=== PATIENT | female | born 1960 ===

== ENCOUNTER 2016-06-30 16:15 | Emergency (ER) | payer OTHER ==
[2016-06-30 16:19] VITALS: BMI 30.9
[2016-06-30 16:23] VITALS: TEMP 98.1
[2016-06-30] MEDS ORDERED: Sodium Chloride 0.9% 1,000 ML IV STA (16:46)
--- NOTE | 2016-06-30 16:51 | ED PDOC ---
Arrival/HPI - General Chief Complaint: Dizziness/Lightheaded Time Seen by Provider: 06/30/16 16:24 Historian: Patient - History of Present Illness Narrative History of Present Illness (Text): 06/30/16 16:48 56 y/o female, pmh including HIV, nkda, c/o dizziness/nausea after taking tylenol#4 for the first time. Pt. stated that she has mild rt. posterior neck/ headache on the back of the head 11am, took tylenol#4 from the daughter to relief the headache which the headache resolved but she took it on the empty stomach, feeling nauseous and wants to vomiting, no chest pain or shortness of breath, no palpitation, no other medical or psychological complaints, no numbness or tingling, no dizziness, no night sweat, no change in vision, no weakness, no other medical or psychological complaints. Past Medical History - Provider Review Nursing Documentation Reviewed: Yes - Infectious Disease Hx of Infectious Diseases: None - Tetanus Immunization Tetanus Immunization: Unknown - Cardiac Hx Cardiac Disorders: No - Pulmonary Hx Respiratory Disorders: No - Neurological Hx Neurological Disorder: No - HEENT Hx HEENT Disorder: No - Renal Hx Renal Disorder: Yes Hx Kidney Stones: Yes - Endocrine/Metabolic Hx Endocrine Disorders: No - Hematological/Oncological Hx AIDS: Yes - Integumentary Hx Dermatological Disorder: No - Musculoskeletal/Rheumatological Hx Musculoskeletal Disorders: No Hx Falls: No - Gastrointestinal Hx Gastrointestinal Disorders: Yes Hx Gastroesophageal Reflux: Yes - Genitourinary/Gynecological Hx Genitourinary Disorders: No - Psychiatric Hx Psychophysiologic Disorder: Yes Hx Anxiety: Yes Hx Depression: Yes Hx Substance Use: No - Surgical History Hx Cholecystectomy: Yes - Anesthesia Hx Anesthesia: No Hx Anesthesia Reactions: No Hx Malignant Hyperthermia: No - Suicidal Assessment Feels Threatened In Home Enviroment: No Family/Social History - Physician Review Nursing Documentation Reviewed: Yes Family/Social History: Unknown Family HX Smoking Status: Never Smoked Hx Alcohol Use: No Hx Substance Use: No Hx Substance Use Treatment: No Allergies/Home Meds Allergies/Adverse Reactions: Allergies No Known Allergies Allergy (Verified 06/30/16 16:18) Home Medications: Home Meds Medication Instructions Recorded Confirmed Emtricita/rilpivir/tenofovir 1 tab PO DAILY 03/31/14 03/07/15 [Complera 200 mg-25 mg-300 mg] Review of Systems - Review of Systems Constitutional: absent: Fatigue, Fevers Eyes: absent: Vision Changes, Photophobia, Eye Pain ENT: absent: Hearing Changes, Tinnitus, TMJ Pain, Voice Changes, Sore Throat, Rhinorrhea, Epistaxis, Sinus Congestion Respiratory: absent: SOB, Cough, Sputum, Wheezing Cardiovascular: absent: Chest Pain, Palpitations, Edema, Calf Pain, TSAI, Orthopnea, Syncope Gastrointestinal: Nausea, Vomiting. absent: Abdominal Pain Genitourinary Female: absent: Dysuria, Frequency Musculoskeletal: absent: Arthralgias, Back Pain, Neck Pain, Joint Swelling, Myalgias Skin: absent: Rash, Pruritis, Skin Lesions, Laceration, Abscess, Ulcer, Cellulitis Neurological: Headache. absent: Dizziness, Focal Weakness, Gait Changes, Speech Changes, Facial Droop, Disequilibrium, Seizure Endocrine: absent: Diaphoresis, Polyuria, Polydipsia Hemo/Lymphatic: absent: Adenopathy, Easy Bleeding, Easy Bruising Psychiatric: absent: Anxiety, Depression, Suicidal Ideation Physical Exam Vital Signs Reviewed: Yes Vital Signs Temp Pulse Resp BP Pulse Ox 06/30/16 18:15 73 17 128/77 100 06/30/16 16:20 98.1 F 72 18 131/72 97 Temperature: Afebrile Blood Pressure: Normal Pulse: Regular Respiratory Rate: Normal Appearance: Positive for: Well-Appearing, Non-Toxic, Comfortable Pain Distress: None Mental Status: Positive for: Alert and Oriented X 3 - Systems Exam Head: Present: Atraumatic, Normocephalic Pupils: Present: PERRL Extroacular Muscles: Present: EOMI Conjunctiva: Present: Normal Ears: Present: NORMAL TM, Normal Canal. No: Erythema Mouth: Present: Moist Mucous Membranes, Normal Lips, Normal Tounge, Normal Teeth. No: Drooling, Trismus Pharnyx: No: ERYTHEMA, EXUDATE, Uvular Deviation, Soft Palate/Uvular Edema Nose (External): Present: Atraumatic. No: Abrasion, Contusion, Laceration, Lesions Nose (Internal): Present: Normal Inspection, No Active Bleeding. No: Rhinorrhea , Septal Hematoma, Epistaxis Neck: Present: Normal Range of Motion Respiratory/Chest: Present: Clear to Auscultation, Good Air Exchange. No: Respiratory Distress, Accessory Muscle Use Cardiovascular: Present: Regular Rate and Rhythm, Normal S1, S2. No: Murmurs Abdomen: Present: Normal Bowel Sounds. No: Tenderness, Distention, Peritoneal Signs, Rebound, Guarding Back: Present: Normal Inspection. No: CVA Tenderness, Midline Tenderness, Paraspinal Tenderness Upper Extremity: Present: Normal Inspection. No: Cyanosis, Edema Lower Extremity: Present: Normal Inspection. No: Edema Neurological: Present: GCS=15, CN II-XII Intact, Speech Normal, Motor Func Grossly Intact, Gait Normal, Memory Normal, Other (normal finger to nose test, normal heel to nicholson test, no focal neurological deficits. ) Skin: Present: Warm, Dry, Normal Color. No: Rashes Psychiatric: Present: Alert, Oriented x 3, Normal Insight, Normal Concentration Medical Decision Making ED Course and Treatment: 06/30/16 16:54 -labs -CT Head -IVF/reglan -Observe and reassess 06/30/16 18:01 -NSR @ 72BPM, no acute ST or T wave changes compared with previous ekg. -CT Head show no acute findings. -Labs are non-significant. -Pt. has no urinary symptoms. -Pt. feels completely relief after the IVF and reglan, walking with normal gait and posture, no focal neurological deficits, advised no narcotics anymore. -Discharge home with education on stay hydrated, bed rest, take tylenol or motrin as needed, NO NARCOTICS, follow up with your own pmd and neurologist within 2 days, return to the ER for any new or worsening signs or symptoms. - Lab Interpretations Lab Results: 06/30/16 16:50 06/30/16 17:45 Lab Results 06/30/16 18:24: Urine Color Yellow, Urine Appearance Clear, Urine pH 6.0, Ur Specific [place] <= 1.005, Urine Protein Negative, Urine Glucose (UA) Negative, Urine Ketones Negative, Urine Blood Trace-intact H, Urine Nitrate Negative, Urine Bilirubin Negative, Urine Urobilinogen 0.2, Ur Leukocyte Esterase Small H , Urine RBC 0 - 2, Urine WBC 2 - 5, Ur Epithelial Cells 1 - 3 06/30/16 17:45: Sodium 138, Potassium 3.8, Chloride 102, Carbon Dioxide 29, Anion Gap 11, BUN 10, Creatinine 0.8, Est GFR ( Amer) > 60, Est GFR (Non- Af Amer) > 60, Random Glucose 87, Calcium 8.4, Total Bilirubin 0.9, AST 52 H, ALT 37, Alkaline Phosphatase 72, Total Protein 7.1, Albumin 3.6, Globulin 3.5, Albumin/Globulin Ratio 1.0 L 06/30/16 16:50: WBC 6.5 D, RBC 4.51, Hgb 14.1, Hct 40.9, MCV 90.7, MCH 31.3, MCHC 34.5, RDW 12.9, Plt Count 244, MPV 9.6, Gran % 64.5, Lymph % (Auto) 27.9, [place] % (Auto) 6.3 H, Eos % (Auto) 1.1 L, Baso % (Auto) 0.2, Gran # 4.21, Lymph # 1.8, [place] # 0.4, Eos # 0.1, Baso # 0.01 I have reviewed the lab results: Yes Interpretation: No clinic. lab abnormalty - RAD Interpretation Radiology Orders: 06/30/16 16:46 HEAD W/O CONTRAST [CT] Stat PROCEDURE: CT HEAD WITHOUT CONTRAST. HISTORY: rt. posterior headache, no focal deficits COMPARISON: Noncontrast head CT performed 11/05/13 TECHNIQUE: Axial computed tomography images were obtained through the head/brain without intravenous contrast. Radiation dose: Total exam DLP = 774.23 mGy-cm. FINDINGS: HEMORRHAGE: No intracranial hemorrhage. BRAIN: No mass effect or edema. The zavala-white matter differentiation appears intact. Please note that MRI with diffusion imaging is more sensitive in the detection of acute ischemic event. VENTRICLES: No hydrocephalus. CALVARIUM: Unremarkable. PARANASAL SINUSES: Unremarkable as visualized. No significant inflammatory changes. MASTOID AIR CELLS: Unremarkable as visualized. No inflammatory changes. OTHER FINDINGS: None. IMPRESSION: No acute intracranial pathology identified. Courtroom Clerk: Radiologist - EKG Interpretation EKG Interpretation (Text): 06/30/16 18:00 NSR @ 72BPM, no acute ST or T wave changes compared with previous ekg. Interpreted by ED Physician: Yes Type: 12 lead EKG Comparison: Com.w/previous EKG - Medication Orders Current Medication Orders: Discontinued Medications Sodium Chloride (Sodium Chloride 0.9%) 1,000 mls @ 999 mls/hr IV .Q1H1M STA Stop: 06/30/16 17:46 Last Admin: 03/22/17 17:05 Dose: 999 MLS/HR eMAR Start Stop Document 06/30/16 17:05 ALA (Rec: 06/30/16 17:06 ALA [id number]) Intravenous Solution Start Date 06/30/16 Start Time 17:06 End Date 06/30/16 End time 18:06 Total Infusion Time 60 Metoclopramide HCl (Reglan) 10 mg IVP STAT STA Stop: 06/30/16 16:47 Last Admin: 06/30/16 17:10 Dose: 10 MG IVP Administration Document 06/30/16 17:10 ALA (Rec: 06/30/16 17:10 ALA [id number]) Charges for Administration # of IVP Administrations 1 NIHSS Stroke Scale 3 - Date/Time Evaluation Performed Date Performed: 06/30/16 Time Performed: 16:55 When Was NIHSS Performed: Baseline - How Severe is the Stroke Level of Consciousness: 0=Alert LOC to Questions: 0=Both comments correct LOC to commands: 0=Obeys both correctly Best Gaze: 0=Normal Visual: 0=No visual loss Facial: 0=Normal Motor Arm - Left: 0=No drift Motor Arm - Right: 0=No drift Motor Leg - Left: 0=No drift Motor Leg - Right: 0=No drift Limb Ataxia: 0=Absent Sensory: 0=Normal Best Language: 0=No aphasia Dysarthia: 0=Normal articulation Extinction & Inattention (Neglect): 0=Normal, no object Score: 0 - PA / HOSPITAL UNIT COORDINATOR / Resident Statement MD/DO has reviewed & agrees with the documentation as recorded. Disposition/Present on Arrival - Present on Arrival Any Indicators Present on Arrival: No History of DVT/PE: No History of Uncontrolled Diabetes: No Urinary Catheter: No History of Decub. Ulcer: No History Surgical Site Infection Following: None - Disposition Have Diagnosis and Disposition been Completed?: Yes Diagnosis: Medication side effect, Headache Disposition: HOME/ ROUTINE Disposition Time: 18:28 Patient Plan: Discharge Condition: IMPROVED Additional Instructions: Discharge home with education on stay hydrated, bed rest, take tylenol or motrin as needed, NO NARCOTICS, follow up with your own pmd and neurologist within 2 days, return to the ER for any new or worsening signs or symptoms. Referrals: Hayder Silva MD [Primary Care Provider] - Follow up with primary Theodore Daniels MD [Staff Provider] - Follow up with primary Forms: WORK NOTE
[2016-06-30 17:02] LABS: ADD MANUAL DIFF? NO
[2016-06-30 17:13] LABS: BASO # 0.01 K/mm3 (0.0-2.0); BASO % 0.2 % (0.0-3.0); EOS # 0.1 (0.0-0.7); EOS % 1.1 % (1.5-5.0); GRAN # 4.21 (1.4-6.5); GRAN % 64.5 % (50.0-68.0); HEMATOCRIT 40.9 % (36.0-48.0); LYMPH # 1.8 (1.2-3.4); LYMPH % 27.9 % (22.0-35.0); MEAN CELL VOLUME 90.7 fL (80.0-105.0); MEAN CORPUSCULAR HEMOGLOBIN 31.3 pg (25.0-35.0); MEAN CORPUSCULAR HGB CONC 34.5 g/dl (31.0-37.0); MEAN PLATELET VOLUME 9.6 fl (7.0-11.0); MONO # 0.4 (0.1-0.6); MONO % 6.3 % (1.0-6.0); PLATELET COUNT 244 10^3/uL (120.0-450.0); RED CELL DISTRIBUTION WIDTH 12.9 % (11.5-14.5); WHITE BLOOD COUNT 6.5 10^3/ul (4.5-11.0)
[2016-06-30 18:00] LABS: ALKALINE PHOSPHATASE 72 U/L (38-133); ALT/SGPT 37 U/L (7-56); AST/SGOT 52 U/L (15-39); BILIRUBIN,TOTAL 0.9 mg/dL (0.2-1.3); BLOOD UREA NITROGEN 10 mg/dL (7-21); CALCIUM 8.4 mg/dL (8.4-10.5); CARBON DIOXIDE 29 mmol/L (21-33); CHLORIDE 102 mmol/L (98-107); GFR AFRICAN-AMERICAN > 60; GLUCOSE,RANDOM 87 mg/dL (70-110); POTASSIUM 3.8 mmol/L (3.6-5.0); SODIUM 138 mmol/L (132-148); TOTAL PROTEIN 7.1 g/dL (5.8-8.3)
--- NOTE | 2016-06-30 18:15 | CT ---
PROCEDURE: CT HEAD WITHOUT CONTRAST. HISTORY: rt. posterior headache, no focal deficits COMPARISON: Noncontrast head CT performed 11/05/13 TECHNIQUE: Axial computed tomography images were obtained through the head/brain without intravenous contrast. Radiation dose: Total exam DLP = 774.23 mGy-cm. FINDINGS: HEMORRHAGE: No intracranial hemorrhage. BRAIN: No mass effect or edema. The zavala-white matter differentiation appears intact. Please note that MRI with diffusion imaging is more sensitive in the detection of acute ischemic event. VENTRICLES: No hydrocephalus. CALVARIUM: Unremarkable. PARANASAL SINUSES: Unremarkable as visualized. No significant inflammatory changes. MASTOID AIR CELLS: Unremarkable as visualized. No inflammatory changes. OTHER FINDINGS: None. IMPRESSION: No acute intracranial pathology identified.
[2016-06-30 18:33] LABS: URINE APPEARANCE CLEAR (CLEAR); URINE BILIRUBIN NEGATIVE (NEGATIVE); URINE BLOOD TRACE-INTACT (NEGATIVE); URINE COLOR YELLOW (YELLOW); URINE GLUCOSE (UA) NEGATIVE (NEGATIVE); URINE KETONE NEGATIVE (NEGATIVE); URINE LEUKOCYTE ESTERASE SMALL Leu/uL (NEGATIVE); URINE PROTEIN NEGATIVE mg/dL (<30 mg/dL); URINE UROBILINOGEN 0.2 E.U./dL (<1 E.U./dL)
[2016-06-30 18:35] VITALS: BP 128/77; PULSE 73; RESP 17; O2SAT 100
[2016-06-30 18:37] LABS: URINE RBC 0 - 2 /hpf (0-2)
--- NOTE | 2016-06-30 19:48 | CARD ---
APPROVED REPORT EKG Measurement Heart [id number] SD 152P72 [id number] <Conclusion> Normal sinus rhythm Low voltage QRS Prolonged QT Abnormal ECG
== END 2016-06-30 18:38 | disposition home or self-care (01) ==
LOC: ED 16:15
DX: R11.0 Nausea (principal); T39.1X5A Adverse effect of 4-Aminophenol derivatives, initial encounter; R51 Headache; Z21 Asymptomatic human immunodeficiency virus [HIV] infection status
CPT/HCPCS: 70450; 80053; 81001; 85025; 93005; 96361; 96374; 99285; J2765; J7040

== ENCOUNTER 2016-09-04 18:38 | Emergency (ER) | payer OTHER ==
[2016-09-04 18:45] VITALS: RESP 18; TEMP 98.2; BMI 25.7
--- NOTE | 2016-09-04 19:11 | ED PDOC ---
Arrival/HPI - General Chief Complaint: Chest Pain Time Seen by Provider: 09/04/16 18:57 - History of Present Illness Narrative History of Present Illness (Text): 09/04/16 19:08 Pateint is c/o left sided chest pain for 3 hours, pain is reproducible with palpation of the chest, no family history or risk factors, no sob or fever or chills or cough Time/Duration: 1-3 hours Quality: Tightness Modifying Factors (Text): 09/04/16 19:10 palpation of chest Past Medical History - Provider Review Nursing Documentation Reviewed: Yes - Infectious Disease Hx of Infectious Diseases: None - Tetanus Immunization Tetanus Immunization: Unknown - Cardiac Hx Cardiac Disorders: No - Pulmonary Hx Respiratory Disorders: No - Neurological Hx Neurological Disorder: No - HEENT Hx HEENT Disorder: No - Renal Hx Renal Disorder: Yes Hx Kidney Stones: Yes - Endocrine/Metabolic Hx Endocrine Disorders: No - Hematological/Oncological Hx AIDS: Yes - Integumentary Hx Dermatological Disorder: No - Musculoskeletal/Rheumatological Hx Musculoskeletal Disorders: No Hx Falls: No - Gastrointestinal Hx Gastrointestinal Disorders: Yes Hx Gastroesophageal Reflux: Yes - Genitourinary/Gynecological Hx Genitourinary Disorders: No - Psychiatric Hx Psychophysiologic Disorder: Yes Hx Anxiety: Yes Hx Depression: Yes Hx Substance Use: No - Surgical History Hx Cholecystectomy: Yes - Anesthesia Hx Anesthesia: No Hx Anesthesia Reactions: No Hx Malignant Hyperthermia: No - Suicidal Assessment Feels Threatened In Home Enviroment: No Family/Social History - Physician Review Nursing Documentation Reviewed: Yes Family/Social History: No Known Family HX Smoking Status: Never Smoked Hx Alcohol Use: No Hx Substance Use: No Hx Substance Use Treatment: No Allergies/Home Meds Allergies/Adverse Reactions: Allergies No Known Allergies Allergy (Verified 09/04/16 18:54) Home Medications: Home Meds Medication Instructions Recorded Confirmed Emtricita/rilpivir/tenofovir 1 tab PO DAILY 03/31/14 03/07/15 [Complera 200 mg-25 mg-300 mg] Review of Systems - Physician Review All systems were reviewed & negative as marked: Yes - Review of Systems Cardiovascular: Chest Pain Physical Exam Vital Signs Reviewed: Yes Vital Signs Temp Pulse Resp BP Pulse Ox 09/04/16 18:44 98.2 F 69 18 135/75 99 Temperature: Afebrile Blood Pressure: Normal Pulse: Regular Respiratory Rate: Normal Appearance: Positive for: Well-Appearing, Non-Toxic, Comfortable Pain Distress: None Mental Status: Positive for: Alert and Oriented X 3 - Systems Exam Head: Present: Atraumatic, Normocephalic Pupils: Present: PERRL Extroacular Muscles: Present: EOMI Conjunctiva: Present: Normal Mouth: Present: Moist Mucous Membranes Neck: Present: Normal Range of Motion Respiratory/Chest: Present: Clear to Auscultation, Good Air Exchange, Tender to Palpation. No: Respiratory Distress, Accessory Muscle Use Cardiovascular: Present: Regular Rate and Rhythm, Normal S1, S2. No: Murmurs Abdomen: Present: Normal Bowel Sounds. No: Tenderness, Distention, Peritoneal Signs Back: Present: Normal Inspection Upper Extremity: Present: Normal Inspection. No: Cyanosis, Edema Lower Extremity: Present: Normal Inspection. No: Edema Neurological: Present: GCS=15, CN II-XII Intact, Speech Normal Skin: Present: Warm, Dry, Normal Color. No: Rashes Psychiatric: Present: Alert, Oriented x 3, Normal Insight, Normal Concentration Medical Decision Making ED Course and Treatment: 09/04/16 20:29 clincally patients pain is ms in nature , no risk factors will dc to follow up with pmd - Lab Interpretations Lab Results: 09/04/16 18:42 09/04/16 18:42 Lab Results 09/04/16 18:42: Sodium 140, Potassium 4.0, Chloride 103, Carbon Dioxide 29, Anion Gap 12, BUN 16, Creatinine 1.1, Est GFR ( Amer) > 60, Est GFR (Non- Af Amer) 52, Random Glucose 91, Calcium 9.0, Magnesium 2.1, Total Bilirubin 0.7 , AST 49 H, ALT 40, Alkaline Phosphatase 69, Lactate Dehydrogenase 586, Total Creatine Kinase 423 H, CK-MB (CK-2) Pending, CK-MB (CK-2) % Pending, Troponin I < 0.01, Total Protein 7.7, Albumin 4.2, Globulin 3.6, Albumin/Globulin Ratio 1.2 09/04/16 18:42: WBC 6.4, RBC 4.63, Hgb 14.7, Hct 41.6, MCV 89.8, MCH 31.7, MCHC 35.3, RDW 12.8, Plt Count 287, MPV 9.9, Gran % 60.1, Lymph % (Auto) 30.0, [place] % (Auto) 6.8 H, Eos % (Auto) 2.8, Baso % (Auto) 0.3, Gran # 3.86, Lymph # 1.9, [place] # 0.4, Eos # 0.2, Baso # 0.02 - RAD Interpretation Radiology Orders: 09/04/16 19:13 CHEST PORTABLE [RAD] Stat - EKG Interpretation EKG Interpretation (Text): 09/04/16 19:11 normal sinus rhythm rate 69 no acute changes MONCHO Risk Score for UA/NSTEMI - MONCHO Risk Score Age > 64: NO 3 or more CAD Risk Factors: NO Known CAD (Stenosis greater than 50%): NO Severe Angina: NO EKG ST changes greater than 0.5mm: NO Positive Cardiac Marker: NO MONCHO Score: 0 % risk at 14 days of: all cause mortality, new or recurrent [place], or severe recurrent ischemia requiring urgen revascularization: 5% Disposition/Present on Arrival - Present on Arrival Any Indicators Present on Arrival: No History of DVT/PE: No History of Uncontrolled Diabetes: No Urinary Catheter: No History of Decub. Ulcer: No History Surgical Site Infection Following: None - Disposition Have Diagnosis and Disposition been Completed?: Yes Diagnosis: Chest pain Disposition: HOME/ ROUTINE Disposition Time: 20:30 Condition: GOOD Discharge Instructions (ExitCare): Chest Pain (ED) Referrals: Hayder Silva MD [Primary Care Provider] - Follow up with primary
[2016-09-04 19:32] LABS: ADD MANUAL DIFF? NO
[2016-09-04 19:38] LABS: BASO # 0.02 K/mm3 (0.0-2.0); BASO % 0.3 % (0.0-3.0); EOS # 0.2 (0.0-0.7); EOS % 2.8 % (1.5-5.0); GRAN # 3.86 (1.4-6.5); GRAN % 60.1 % (50.0-68.0); HEMATOCRIT 41.6 % (36.0-48.0); LYMPH # 1.9 (1.2-3.4); MEAN CELL VOLUME 89.8 fL (80.0-105.0); MEAN CORPUSCULAR HEMOGLOBIN 31.7 pg (25.0-35.0); MEAN CORPUSCULAR HGB CONC 35.3 g/dl (31.0-37.0); MEAN PLATELET VOLUME 9.9 fl (7.0-11.0); MONO # 0.4 (0.1-0.6); MONO % 6.8 % (1.0-6.0); PLATELET COUNT 287 10^3/uL (120.0-450.0); RED CELL DISTRIBUTION WIDTH 12.8 % (11.5-14.5); WHITE BLOOD COUNT 6.4 10^3/ul (4.5-11.0)
[2016-09-04 19:49] LABS: ALB/GLOB RATIO 1.2 (1.1-1.8); ALKALINE PHOSPHATASE 69 U/L (38-133); ALT/SGPT 40 U/L (7-56); AST/SGOT 49 U/L (15-39); BILIRUBIN,TOTAL 0.7 mg/dL (0.2-1.3); BLOOD UREA NITROGEN 16 mg/dL (7-21); CARBON DIOXIDE 29 mmol/L (21-33); CHLORIDE 103 mmol/L (98-107); GFR AFRICAN-AMERICAN > 60; GLUCOSE,RANDOM 91 mg/dL (70-110); MAGNESIUM 2.1 mg/dL (1.7-2.2); SODIUM 140 mmol/L (132-148); TOTAL PROTEIN 7.7 g/dL (5.8-8.3)
[2016-09-04 20:03] LABS: TROPONIN I < 0.01 ng/mL
[2016-09-04 21:26] VITALS: BP 130/69; PULSE 63; O2SAT 100
[2016-09-04 21:30] LABS: URINE BILIRUBIN NEGATIVE (NEGATIVE); URINE BLOOD TRACE-INTACT (NEGATIVE); URINE GLUCOSE (UA) NEGATIVE (NEGATIVE); URINE KETONE NEGATIVE (NEGATIVE); URINE LEUKOCYTE ESTERASE NEGATIVE Leu/uL (NEGATIVE); URINE PROTEIN NEGATIVE mg/dL (<30 mg/dL); URINE UROBILINOGEN 0.2 E.U./dL (<1 E.U./dL)
[2016-09-04 21:34] LABS: URINE APPEARANCE CLEAR (CLEAR); URINE COLOR YELLOW (YELLOW)
[2016-09-04 21:41] LABS: URINE WBC 0 - 2 /hpf (0-6)
[2016-09-04 21:42] LABS: URINE AMORPHOUS SEDIMENT FEW; URINE BACTERIA MANY (NEG); URINE EPITHELIAL CELLS 0 - 2 /hpf (0-5)
--- NOTE | 2016-09-05 09:31 | RAD ---
HISTORY: cp COMPARISON: 03/31/2014 FINDINGS: LUNGS: No active pulmonary disease. PLEURA: No significant pleural effusion identified, no pneumothorax apparent. CARDIOVASCULAR: Normal. OSSEOUS STRUCTURES: No significant abnormalities. VISUALIZED UPPER ABDOMEN: Normal. OTHER FINDINGS: None. IMPRESSION: No active disease.
--- NOTE | 2016-09-05 12:08 | CARD ---
APPROVED REPORT EKG Measurement Heart [id number] [place] 164P70 [id number] <Conclusion> Normal sinus rhythm Low voltage QRS Borderline ECG
== END 2016-09-04 21:11 | disposition home or self-care (01) ==
LOC: ED 18:38
DX: R07.9 Chest pain, unspecified (principal)

== ENCOUNTER 2016-09-17 18:18 | Emergency (ER) | payer OTHER ==
[2016-09-17 18:18] VITALS: BMI 25.7
[2016-09-17 18:43] VITALS: BP 111/74; PULSE 73; RESP 16; TEMP 97.3; O2SAT 98
--- NOTE | 2016-09-17 19:05 | ED PDOC ---
Arrival/HPI - General Chief Complaint: Foreign Body Time Seen by Provider: 09/17/16 18:21 Historian: Patient - History of Present Illness Narrative History of Present Illness (Text): 09/17/16 18:32 This 56 yo female with pmh HIV +, presents to this ED c/o right 3rd finger tip FB x 2 days. Patient stated she has a wood splinter in the finger. She has not been able to get it off. Patient denies other complains. Time/Duration: Other (2 days) Quality: Aching Context: Home Past Medical History - Provider Review Nursing Documentation Reviewed: Yes - Infectious Disease Hx of Infectious Diseases: None - Tetanus Immunization Tetanus Immunization: Unknown - Reproductive Menopause: Yes - Cardiac Hx Cardiac Disorders: No - Pulmonary Hx Respiratory Disorders: No - Neurological Hx Neurological Disorder: No - HEENT Hx HEENT Disorder: No - Renal Hx Renal Disorder: Yes Hx Kidney Stones: Yes - Endocrine/Metabolic Hx Endocrine Disorders: No - Hematological/Oncological Hx Blood Disorders: Yes - Integumentary Hx Dermatological Disorder: No - Musculoskeletal/Rheumatological Hx Musculoskeletal Disorders: No Hx Falls: No - Gastrointestinal Hx Gastrointestinal Disorders: Yes Hx Gastroesophageal Reflux: Yes - Genitourinary/Gynecological Hx Genitourinary Disorders: No - Psychiatric Hx Psychophysiologic Disorder: Yes Hx Anxiety: Yes Hx Depression: Yes Hx Substance Use: No - Surgical History Hx Cholecystectomy: Yes - Anesthesia Hx Anesthesia: No Hx Anesthesia Reactions: No Hx Malignant Hyperthermia: No - Suicidal Assessment Feels Threatened In Home Enviroment: No Family/Social History - Physician Review Nursing Documentation Reviewed: Yes Family/Social History: No Known Family HX Smoking Status: Never Smoked Hx Alcohol Use: No Hx Substance Use: No Hx Substance Use Treatment: No Allergies/Home Meds Allergies/Adverse Reactions: Allergies No Known Allergies Allergy (Verified 09/17/16 18:38) Home Medications: Home Meds Medication Instructions Recorded Confirmed Emtricita/rilpivir/tenofovir 1 tab PO DAILY 03/31/14 09/17/16 [Complera 200 mg-25 mg-300 mg] Review of Systems - Review of Systems Constitutional: Normal. absent: Fatigue, Weight Change, Fevers Eyes: Normal ENT: Normal Respiratory: Normal Cardiovascular: Normal Gastrointestinal: Normal Genitourinary Female: Normal Musculoskeletal: Other (right 3rd finger tip wood splinter) Skin: Normal Neurological: Normal Endocrine: Normal Hemo/Lymphatic: Normal Psychiatric: Normal Physical Exam Vital Signs Temp Pulse Resp BP Pulse Ox 09/17/16 18:39 97.3 F L 73 16 111/74 98 Temperature: Afebrile Blood Pressure: Normal Pulse: Regular Respiratory Rate: Normal Appearance: Positive for: Well-Appearing, Non-Toxic, Comfortable Pain Distress: None Mental Status: Positive for: Alert and Oriented X 3 - Systems Exam Head: Present: Atraumatic, Normocephalic Pupils: Present: PERRL Extroacular Muscles: Present: EOMI Conjunctiva: Present: Normal Ears: Present: Normal Mouth: Present: Moist Mucous Membranes Neck: Present: Normal Range of Motion Upper Extremity: Present: Normal ROM, NORMAL PULSES, Neurovascularly Intact, Capillary Refill < 2s, Other ((+) tiny FB visualized at right 3rd finger tip. No erythema, or drainge.). No: Cyanosis, Edema, Tenderness, Swelling, Erythema , Temperature Abnormalties Lower Extremity: Present: Normal Inspection, Normal ROM Neurological: Present: GCS=15, CN II-XII Intact, Speech Normal Skin: Present: Warm, Dry, Normal Color. No: Rashes Psychiatric: Present: Alert, Oriented x 3 Medical Decision Making ED Course and Treatment: 09/17/16 19:02 Patient remained stable during the course of ED visit. FB was removed with a 18 gauge needle, without complication or bleeding. ABX was recommended for 7 days. To return to emergency if sign of finger infection occurs Last tetanus < 5 years Re-evaluation Time: 19:03 Reassessment Condition: Re-examined, Improved - Procedure PROCEDURE NOTE (Text): PROCEDURE: FOREIGN BODY REMOVAL Performed by the emergency provider Timeout: A timeout to verify the correct patient, procedure, and site was performed immediately prior to the procedure. Indication: Foreign body in finger tip Procedure: The wood splinter was removed using 18 gauge needle. Post-procedure: Patient tolerated the procedure well with no immediate complications. The foreign body was removed. There was no bleeding. Patient tolerated the procedure well with no immediate complications. Disposition/Present on Arrival - Present on Arrival Any Indicators Present on Arrival: No History of DVT/PE: No History of Uncontrolled Diabetes: No Urinary Catheter: No History of Decub. Ulcer: No History Surgical Site Infection Following: None - Disposition Have Diagnosis and Disposition been Completed?: Yes Diagnosis: Embedded wood splinter Disposition: HOME/ ROUTINE Disposition Time: 19:03 Patient Plan: Discharge Condition: GOOD Discharge Instructions (ExitCare): Soft Tissue Foreign Body (ED) Additional Instructions: Call private doctor for follow-up in 1-2 days and wound check. Take antibiotic as instructed with food. Return to the emergency room if wound becomes infected redness swelling or increased pain Prescriptions: Amoxicillin/Clavulanate [Augmentin 875 MG-125 MG] 1 tab PO BID #14 tab Referrals: Hayder Silva MD [Primary Care Provider] - Follow up with primary
== END 2016-09-17 19:10 | disposition home or self-care (01) ==
LOC: ED 18:18
DX: S60.452A Superficial foreign body of right middle finger, initial encounter (principal); W45.8XXA Other foreign body or object entering through skin, initial encounter; Y92.009 Unspecified place in unspecified non-institutional (private) residence as the place of occurrence of the external cause

== ENCOUNTER 2016-11-17 09:44 | Emergency (ER) | payer OTHER ==
[2016-11-17 09:46] VITALS: BMI 25.0
[2016-11-17 10:07] VITALS: RESP 18; TEMP 98.8; O2SAT 97
--- NOTE | 2016-11-17 10:11 | ED PDOC ---
Arrival/HPI - General Chief Complaint: Cough, Cold, Congestion Time Seen by Provider: 11/17/16 09:44 Historian: Patient - History of Present Illness Narrative History of Present Illness (Text): 11/17/16 10:07 56 y/o female with past medical history of HIV presents for cough ongoing for about 2-3 days. Overnight, patient began to have pleuritic chest pain and pain with coughing. Patient took OTC flu medication. Patient also c/o frontal MADRID. Patient denies having any SOB, F/C, abd pain, N/V/D/C. Patient f/u with Dr. Sanchez for HIV. Last cell count and viral load was about 6 months ago and she states that her viral load is undetectable. Time/Duration: < week Symptom Onset: Gradual Symptom Course: Unchanged Context: Home Past Medical History - Provider Review Nursing Documentation Reviewed: Yes - Travel History Have you recently traveled outside [place] w/in the past 3 mons?: No - Infectious Disease Hx of Infectious Diseases: None - Tetanus Immunization Tetanus Immunization: Unknown - Reproductive Menopause: Yes - Cardiac Hx Cardiac Disorders: No - Pulmonary Hx Respiratory Disorders: No - Neurological Hx Neurological Disorder: No - HEENT Hx HEENT Disorder: No - Renal Hx Renal Disorder: Yes Hx Kidney Stones: Yes - Endocrine/Metabolic Hx Endocrine Disorders: No - Hematological/Oncological Hx Blood Disorders: Yes - Integumentary Hx Dermatological Disorder: No - Musculoskeletal/Rheumatological Hx Musculoskeletal Disorders: No Hx Falls: No - Gastrointestinal Hx Gastrointestinal Disorders: Yes Hx Gastroesophageal Reflux: Yes - Genitourinary/Gynecological Hx Genitourinary Disorders: No - Psychiatric Hx Psychophysiologic Disorder: Yes Hx Anxiety: Yes Hx Depression: Yes Hx Substance Use: No - Surgical History Hx Cholecystectomy: Yes Other/Comment: kidney stones removed - Anesthesia Hx Anesthesia: Yes Hx Anesthesia Reactions: No Hx Malignant Hyperthermia: No - Suicidal Assessment Feels Threatened In Home Enviroment: No Family/Social History - Physician Review Nursing Documentation Reviewed: Yes Family/Social History: Unknown Family HX Smoking Status: Never Smoked Hx Alcohol Use: No Hx Substance Use: No Hx Substance Use Treatment: No Allergies/Home Meds Allergies/Adverse Reactions: Allergies No Known Allergies Allergy (Verified 11/17/16 09:47) Home Medications: Home Meds Medication Instructions Recorded Confirmed Emtricita/rilpivir/tenofovir 1 tab PO DAILY 03/31/14 11/17/16 [Complera 200 mg-25 mg-300 mg] Review of Systems - Review of Systems Constitutional: Normal. absent: Fatigue, Fevers Eyes: Normal. absent: Vision Changes, Photophobia ENT: Rhinorrhea. absent: Hearing Changes, Sore Throat Respiratory: Cough. absent: SOB, Sputum, Wheezing Cardiovascular: Chest Pain. absent: Edema, Calf Pain Gastrointestinal: absent: Abdominal Pain, Constipation, Diarrhea, Nausea, Vomiting Genitourinary Female: Normal. absent: Dysuria, Frequency Musculoskeletal: Normal. absent: Arthralgias, Back Pain Skin: Normal. absent: Rash, Pruritis Neurological: Normal. absent: Headache, Dizziness Hemo/Lymphatic: Normal. absent: Adenopathy Psychiatric: Normal. absent: Anxiety, Depression Physical Exam Vital Signs Reviewed: Yes Vital Signs Temp Pulse Resp BP Pulse Ox 11/17/16 11:55 71 18 127/72 97 11/17/16 09:54 98.8 F 77 18 122/79 97 Temperature: Afebrile Blood Pressure: Normal Pulse: Regular Respiratory Rate: Normal Appearance: Positive for: Well-Appearing, Non-Toxic, Comfortable Pain Distress: None Mental Status: Positive for: Alert and Oriented X 3 - Systems Exam Head: Present: Atraumatic, Normocephalic Pupils: Present: PERRL Extroacular Muscles: Present: EOMI Conjunctiva: Present: Normal Mouth: Present: Moist Mucous Membranes Respiratory/Chest: Present: Clear to Auscultation, Good Air Exchange. No: Respiratory Distress, Accessory Muscle Use, Wheezes, Rales, Rhonchi Cardiovascular: Present: Regular Rate and Rhythm, Normal S1, S2. No: Murmurs, Gallop, Muffled Abdomen: Present: Normal Bowel Sounds. No: Tenderness, Distention, Peritoneal Signs, Rebound, Guarding Lower Extremity: Present: NORMAL PULSES. No: Edema, CALF TENDERNESS Neurological: Present: GCS=15, CN II-XII Intact, Speech Normal Skin: Present: Warm, Dry, Normal Color. No: Rashes Psychiatric: Present: Alert, Oriented x 3, Normal Insight, Normal Concentration Medical Decision Making ED Course and Treatment: 11/17/16 10:13 56 y/o female presents for cough and chest pain with coughing. Will check CBC, CMP, EKG, chest xray 11/17/16 11:20 Blood work looks unremarkable. CXR does not show any active disease. Cough likely due to bronchitis. Patient is HIV positive and therefore, immunocompromised. Will treat with Z seth. - Lab Interpretations Narrative Lab Interpretation (Text): 11/17/16 11:19 unremarkable Lab Results: 11/17/16 10:15 11/17/16 10:15 Lab Results 11/17/16 10:15: Sodium 139, Potassium 3.8, Chloride 102, Carbon Dioxide 27, Anion Gap 14, BUN 14, Creatinine 0.7, Est GFR ( Amer) > 60, Est GFR (Non- Af Amer) > 60, Random Glucose 103, Calcium 9.0, Total Bilirubin 1.2, AST 41 H, ALT 38, Alkaline Phosphatase 65, Total Protein 6.8, Albumin 3.7, Globulin 3.1, Albumin/Globulin Ratio 1.2 11/17/16 10:15: WBC 6.6, RBC 4.41, Hgb 13.9, Hct 40.0, MCV 90.7, MCH 31.5, MCHC 34.8, RDW 12.7, Plt Count 227, MPV 9.6 I have reviewed the lab results: Yes - RAD Interpretation Narrative RAD Interpretations (Text): 11/17/16 11:20 no active disease noted Radiology Orders: 11/17/16 10:06 CXR (PA/LAT) [CHEST TWO VIEWS (PA/LAT)] [RAD] Stat Right Of Way Agent: ED Physician - EKG Interpretation EKG Interpretation (Text): 11/17/16 10:[address] changes, normal axis, normal intervals Interpreted by ED Physician: Yes Type: 12 lead EKG Disposition/Present on Arrival - Present on Arrival Any Indicators Present on Arrival: No History of DVT/PE: No History of Uncontrolled Diabetes: No Urinary Catheter: No History of Decub. Ulcer: No History Surgical Site Infection Following: None - Disposition Have Diagnosis and Disposition been Completed?: Yes Diagnosis: Bronchitis Disposition: HOME/ ROUTINE Disposition Time: 11:19 Patient Plan: Discharge Condition: GOOD Additional Instructions: Miranda Woodward, thank you for letting us take care of you today. Your provider was Dr. Tarsha Shepard. You were treated for cough. The emergency medical care you received today was directed at your acute symptoms. If you were prescribed any medication, please fill it and take as directed. It may take several days for your symptoms to resolve. Return to the Emergency Department if your symptoms worsen, do not improve, or if you have any other problems. Please contact your doctor or call one of the physicians/clinics you have been referred to that are listed on the Patient Visit Information form that is included in your discharge packet. Bring any paperwork you were given at discharge with you along with any medications you are taking to your follow up visit. Our treatment cannot replace ongoing medical care by a primary care provider (PCP) outside of the emergency department. Thank you for allowing the [facility] team to be part of your care today. If you had an X-Ray or CT scan: A Radiologist will review the ED reading if any change in treatment is needed we will contact you. If you had a blood, urine, or wound culture: It will take several days for the results, if any change in treatment is needed we will contact you. If you had an STI test: It will take 48 hours for the results. Please call after 1 week if you have not heard back. Prescriptions: Azithromycin [Z-Seth] 250 mg PO DAILY #6 tab Referrals: PCP,NO [Primary Care Provider] - Follow up with primary Forms: [employer] (Swedish)
[2016-11-17 10:40] LABS: HEMOGLOBIN 13.9 g/dL (12.0-16.0); MEAN CELL VOLUME 90.7 fl (80.0-105.0); MEAN CORPUSCULAR HEMOGLOBIN 31.5 pg (25.0-35.0); MEAN CORPUSCULAR HGB CONC 34.8 g/dl (31.0-37.0); MEAN PLATELET VOLUME 9.6 fl (7.0-11.0); RBC 4.41 10^6/uL (3.5-6.1); RED CELL DISTRIBUTION WIDTH 12.7 % (11.5-14.5); WHITE BLOOD COUNT 6.6 10^3/ul (4.5-11.0)
[2016-11-17 10:59] LABS: ALB/GLOB RATIO 1.2 (1.1-1.8); ALBUMIN 3.7 g/dL (3.0-4.8); ALT/SGPT 38 U/L (7-56); AST/SGOT 41 U/L (15-39); BLOOD UREA NITROGEN 14 mg/dL (7-21); GFR AFRICAN-AMERICAN > 60; GFR NON-AFRICAN AMERICAN > 60
--- NOTE | 2016-11-17 11:16 | RAD ---
HISTORY: chest pain COMPARISON: 09/04/2016 TECHNIQUE: Chest PA and lateral FINDINGS: LUNGS: No active pulmonary disease. PLEURA: No significant pleural effusion identified. No pneumothorax apparent. CARDIOVASCULAR: Normal. OSSEOUS STRUCTURES: No significant abnormalities. VISUALIZED UPPER ABDOMEN: Normal. OTHER FINDINGS: None. IMPRESSION: No active disease.
[2016-11-17 11:57] VITALS: BP 127/72; PULSE 71
--- NOTE | 2016-11-18 00:55 | CARD ---
APPROVED REPORT EKG Measurement Heart [id number] <Conclusion> Normal sinus rhythm Low voltage QRS Borderline ECG
== END 2016-11-17 11:55 | disposition home or self-care (01) ==
LOC: ED 09:44
DX: J40 Bronchitis, not specified as acute or chronic (principal)

== ENCOUNTER 2016-12-10 17:15 | Emergency (ER) | payer OTHER ==
--- NOTE | 2016-12-10 17:32 | ED PDOC ---
Arrival/HPI - General Chief Complaint: Chest Pain Time Seen by Provider: 12/10/16 17:21 Historian: Patient - History of Present Illness Time/Duration: Other (3 days) Symptom Onset: Sudden Symptom Course: Worsening Quality: Aching, Stabbing Severity Level: Moderate Associated Symptoms (Text): 12/10/16 17:30 Patient complains of a coughing fit 3 days ago with acute onset of severe right lower anterior rib pain. There is pain with breathing and coughing laughing and sneezing. No dyspnea, but rather pain with breathing. No abdominal pain nausea vomiting or diarrhea. Patient reports she was at her HIV doctor last week and had an undetectable viral load. No fever or chills. No back pain. Past Medical History - Travel History If Yes, travel location?: [place] - Infectious Disease Hx of Infectious Diseases: None - Tetanus Immunization Tetanus Immunization: Unknown - Cardiac Hx Cardiac Disorders: No - Pulmonary Hx Respiratory Disorders: No - Neurological Hx Neurological Disorder: No - HEENT Hx HEENT Disorder: No - Renal Hx Renal Disorder: Yes Hx Kidney Stones: Yes - Endocrine/Metabolic Hx Endocrine Disorders: No - Hematological/Oncological Hx Blood Disorders: Yes - Integumentary Hx Dermatological Disorder: No - Musculoskeletal/Rheumatological Hx Musculoskeletal Disorders: No Hx Falls: No - Gastrointestinal Hx Gastrointestinal Disorders: Yes Hx Gastroesophageal Reflux: Yes - Genitourinary/Gynecological Hx Genitourinary Disorders: No - Psychiatric Hx Psychophysiologic Disorder: Yes Hx Anxiety: Yes Hx Depression: Yes Hx Substance Use: No - Surgical History Hx Cholecystectomy: Yes Other/Comment: kidney stones removed - Anesthesia Hx Anesthesia: Yes Hx Anesthesia Reactions: No Hx Malignant Hyperthermia: No - Suicidal Assessment Feels Threatened In Home Enviroment: No Family/Social History - Physician Review Nursing Documentation Reviewed: Yes Family/Social History: Unknown Family HX Smoking Status: Never Smoked Hx Alcohol Use: No Hx Substance Use: No Hx Substance Use Treatment: No Allergies/Home Meds Allergies/Adverse Reactions: Allergies No Known Allergies Allergy (Verified 12/10/16 17:25) Home Medications: Home Meds Medication Instructions Recorded Confirmed Emtricita/rilpivir/tenofovir 1 tab PO DAILY 03/31/14 12/10/16 [Complera 200 mg-25 mg-300 mg] Review of Systems - Physician Review All systems were reviewed & negative as marked: Yes - Review of Systems Constitutional: Normal Respiratory: Cough. absent: SOB, Sputum, Wheezing Cardiovascular: absent: Chest Pain, Palpitations, Syncope Gastrointestinal: absent: Abdominal Pain, Nausea, Vomiting Genitourinary Female: absent: Dysuria, Frequency, Hematuria Physical Exam Vital Signs Temp Pulse Resp BP Pulse Ox 12/10/16 17:24 97.9 F 74 18 115/71 98 Temperature: Afebrile Blood Pressure: Normal Pulse: Regular Respiratory Rate: Normal Appearance: Positive for: Well-Appearing, Non-Toxic, Comfortable Pain Distress: None Mental Status: Positive for: Alert and Oriented X 3 - Systems Exam Head: Present: Atraumatic, Normocephalic Ears: Present: NORMAL TM, Normal Canal. No: Erythema Mouth: Present: Moist Mucous Membranes Pharnyx: No: ERYTHEMA, EXUDATE, TONSILS ENLARGED Neck: Present: Normal Range of Motion. No: Meningeal Signs, MIDLINE TENDERNESS , Paraspinal Tenderness Respiratory/Chest: Present: Clear to Auscultation, Good Air Exchange, Decreased Breath Sounds, Tender to Palpation (Right anterior lower rib tenderness with no crepitus and no skin changes). No: Respiratory Distress, Accessory Muscle Use Cardiovascular: Present: Regular Rate and Rhythm, Normal S1, S2. No: Murmurs Abdomen: Present: Normal Bowel Sounds. No: Tenderness, Distention, Peritoneal Signs, Rebound, Guarding Back: Present: Normal Inspection. No: CVA Tenderness, Midline Tenderness, Paraspinal Tenderness Upper Extremity: Present: Normal Inspection. No: Cyanosis, Edema Lower Extremity: Present: Normal Inspection. No: Edema Neurological: Present: GCS=15, CN II-XII Intact, Speech Normal, Motor Func Grossly Intact Skin: Present: Warm, Dry, Normal Color. No: Rashes Medical Decision Making - RAD Interpretation Radiology Orders: 12/10/16 17:29 RIBS RIGHT & PA CHEST [RAD] Stat Right ribs and chest show no fracture dislocation pneumothorax or pneumonia Internist Medical Doctor Md: ED Physician Disposition/Present on Arrival - Present on Arrival Any Indicators Present on Arrival: No History of DVT/PE: No History of Uncontrolled Diabetes: No Urinary Catheter: No History of Decub. Ulcer: No History Surgical Site Infection Following: None - Disposition Have Diagnosis and Disposition been Completed?: Yes Diagnosis: Strain of chest wall Disposition: HOME/ ROUTINE Disposition Time: 18:03 Patient Plan: Discharge Condition: GOOD Discharge Instructions (ExitCare): Chest Wall Pain (ED) Additional Instructions: Rest and moist heat. Follow-up with PMD. Follow up in ER as needed. Prescriptions: Tramadol HCl [Ultram] 50 mg PO Q6 PRN #14 tab PRN Reason: Pain Forms: [employer] (Divehi)
[2016-12-10 17:33] VITALS: BP 115/71; PULSE 74; TEMP 97.9; O2SAT 98; BMI 26.9
[2016-12-10 18:08] VITALS: RESP 16
--- NOTE | 2016-12-10 18:18 | RAD ---
PROCEDURE: Radiographs of the Chest and Right Ribs. HISTORY: Pain COMPARISON: None available. TECHNIQUE: Frontal radiograph of the chest and multiple oblique radiographs of the right ribs were obtained. FINDINGS: RIGHT RIBS: No acute fracture or focal lesion visualized. LUNGS: The lungs are well inflated and clear. PLEURA: No pneumothorax or pleural fluid. CARDIOVASCULAR: Normal sized heart. No pulmonary vascular congestion. OTHER FINDINGS: None. IMPRESSION: No acute rib fracture. Clear lungs.
== END 2016-12-10 18:08 | disposition home or self-care (01) ==
LOC: ED 17:15
DX: S29.011A Strain of muscle and tendon of front wall of thorax, initial encounter (principal); X58.XXXA Exposure to other specified factors, initial encounter

== ENCOUNTER 2017-04-13 13:25 | Emergency (ER) | payer OTHER ==
[2017-04-13 13:25] VITALS: BMI 25.0
[2017-04-13 13:34] VITALS: RESP 18; TEMP 97.9
--- NOTE | 2017-04-13 14:02 | ED PDOC ---
Arrival/HPI - General Chief Complaint: Back Pain Time Seen by Provider: 04/13/17 13:58 Historian: Patient - History of Present Illness Narrative History of Present Illness (Text): 04/13/17 13:59 57yo female with PMhx of HIV who present with complaint of lower back pain x 3days. Patient states pain started suddenly while sitting. PAin is worse with movement. States she is taking Ibuprofen 800mg without relieve. Denies abdominal pain, upper back ripping/tearing pain, nausea, vomiting, fever, chills , any other complaint. Past Medical History - Provider Review Nursing Documentation Reviewed: Yes - Infectious Disease Hx of Infectious Diseases: None - Tetanus Immunization Tetanus Immunization: Unknown - Cardiac Hx Cardiac Disorders: No - Pulmonary Hx Respiratory Disorders: No - Neurological Hx Neurological Disorder: No - HEENT Hx HEENT Disorder: No - Renal Hx Renal Disorder: Yes Hx Kidney Stones: Yes - Endocrine/Metabolic Hx Endocrine Disorders: No - Hematological/Oncological Hx Blood Disorders: Yes - Integumentary Hx Dermatological Disorder: No - Musculoskeletal/Rheumatological Hx Musculoskeletal Disorders: No - Gastrointestinal Hx Gastrointestinal Disorders: Yes Hx Gastroesophageal Reflux: Yes - Genitourinary/Gynecological Hx Genitourinary Disorders: No - Psychiatric Hx Psychophysiologic Disorder: Yes Hx Anxiety: Yes Hx Depression: Yes Hx Substance Use: No - Surgical History Hx Cholecystectomy: Yes Other/Comment: kidney stones removed - Anesthesia Hx Anesthesia: Yes Hx Anesthesia Reactions: No Hx Malignant Hyperthermia: No - Suicidal Assessment Feels Threatened In Home Enviroment: No Family/Social History - Physician Review Nursing Documentation Reviewed: Yes Family/Social History: Unknown Family HX Smoking Status: Never Smoked Hx Alcohol Use: No Hx Substance Use: No Hx Substance Use Treatment: No Allergies/Home Meds Allergies/Adverse Reactions: Allergies No Known Allergies Allergy (Verified 04/13/17 13:34) Home Medications: Home Meds Medication Instructions Recorded Confirmed Emtricita/rilpivir/tenofovir 1 tab PO DAILY 03/31/14 04/13/17 [Complera 200 mg-25 mg-300 mg] Review of Systems - Physician Review All systems were reviewed & negative as marked: Yes - Review of Systems Constitutional: Normal Eyes: Normal ENT: Normal Respiratory: Normal Cardiovascular: Normal Gastrointestinal: Normal Genitourinary Female: Normal Musculoskeletal: Back Pain Skin: Normal Neurological: Normal Endocrine: Normal Hemo/Lymphatic: Normal Psychiatric: Normal Physical Exam Vital Signs Reviewed: Yes Vital Signs Temp Pulse Resp BP Pulse Ox 04/13/17 13:30 97.9 F 84 18 108/75 96 Temperature: Afebrile Blood Pressure: Normal Pulse: Regular Respiratory Rate: Normal Appearance: Positive for: Well-Appearing, Non-Toxic, Comfortable Pain Distress: None Mental Status: Positive for: Alert and Oriented X 3 - Systems Exam Head: Present: Atraumatic, Normocephalic Pupils: Present: PERRL Extroacular Muscles: Present: EOMI Conjunctiva: Present: Normal Mouth: Present: Moist Mucous Membranes Neck: Present: Normal Range of Motion Respiratory/Chest: Present: Clear to Auscultation, Good Air Exchange. No: Respiratory Distress, Accessory Muscle Use Cardiovascular: Present: Regular Rate and Rhythm, Normal S1, S2. No: Murmurs Abdomen: Present: Normal Bowel Sounds. No: Tenderness, Distention, Peritoneal Signs Back: Present: Midline Tenderness. No: CVA Tenderness, Paraspinal Tenderness, Pain with Leg Raise Upper Extremity: Present: Normal Inspection. No: Cyanosis, Edema Lower Extremity: Present: Normal Inspection. No: Edema Neurological: Present: GCS=15, CN II-XII Intact, Speech Normal Skin: Present: Warm, Dry, Normal Color. No: Rashes Psychiatric: Present: Alert, Oriented x 3, Normal Insight, Normal Concentration Medical Decision Making ED Course and Treatment: 04/13/17 15:39 PT in ED for stated history. Her pain improved in ED with medication. She is ambulatory and neurologically intact UA - +UTI Macrobid given LS xray - Negative Result DW the pt. Will be DC home with macrobid, flexeril and Naprosyn - Lab Interpretations Lab Results: Lab Results 04/13/17 14:25: Urine Color Yellow, Urine Appearance Clear, Urine pH 6.0, Ur Specific [place] 1.025, Urine Protein Negative, Urine Glucose (UA) Negative, Urine Ketones Negative, Urine Blood Trace-intact H, Urine Nitrate Negative, Urine Bilirubin Negative, Urine Urobilinogen 0.2, Ur Leukocyte Esterase Small H , Urine RBC 0 - 2, Urine WBC 1 - 3, Ur Epithelial Cells 4 - 5, Urine Bacteria Trace - RAD Interpretation Radiology Orders: 04/13/17 13:58 LS SPINE WITH OBL > 18 YRS OLD [RAD] Stat - Medication Orders Current Medication Orders: Discontinued Medications Cyclobenzaprine HCl (Flexeril) 10 mg PO STAT STA Stop: 04/13/17 14:14 Last Admin: 04/13/17 14:56 Dose: 10 mg Ketorolac Tromethamine (Toradol) 60 mg IM STAT STA Stop: 04/13/17 14:14 Last Admin: 04/13/17 14:56 Dose: 60 mg MAR Pain Assessment Document 04/13/17 14:56 EQ (Rec: 04/13/17 14:56 EQ [id number]) Pain Reassessment Is this a pain reassessment? No Sleep Is patient sleeping during reassessment? No Presence of Pain Presence of Pain Yes IM Administration Charges Document 04/13/17 14:56 EQ (Rec: 04/13/17 14:56 EQ [id number]) Charges for Administration # of IM Administrations 1 Disposition/Present on Arrival - Present on Arrival Any Indicators Present on Arrival: No History of DVT/PE: No History of Uncontrolled Diabetes: No Urinary Catheter: No History of Decub. Ulcer: No History Surgical Site Infection Following: None - Disposition Have Diagnosis and Disposition been Completed?: Yes Diagnosis: Back pain, UTI (urinary tract infection) Disposition: HOME/ ROUTINE Disposition Time: 15:45 Patient Plan: Discharge Condition: STABLE Discharge Instructions (ExitCare): Back Pain (GEN), Urinary Tract Infection in Women (ED) Additional Instructions: Follow up with your doctor Return to ED for any new or worsening symptoms Prescriptions: Cyclobenzaprine [Cyclobenzaprine HCl] 10 mg PO TID #12 tab Naproxen [Naprosyn] 500 mg PO BID #20 tab Nitrofurantoin Macrocrystals [Macrobid] 100 mg PO BID #14 cap Referrals: Hayder Silva MD [Primary Care Provider] - Follow up with primary Forms: [employer] (Kazakh)
[2017-04-13 14:45] LABS: URINE BILIRUBIN NEGATIVE (NEGATIVE); URINE BLOOD TRACE-INTACT (NEGATIVE); URINE GLUCOSE (UA) NEGATIVE (NEGATIVE); URINE LEUKOCYTE ESTERASE SMALL Leu/uL (NEGATIVE); URINE NITRATE NEGATIVE (NEGATIVE); URINE PROTEIN NEGATIVE mg/dL (<30 mg/dL); URINE UROBILINOGEN 0.2 E.U./dL (<1 E.U./dL)
[2017-04-13 14:46] LABS: URINE APPEARANCE CLEAR (CLEAR); URINE COLOR YELLOW (YELLOW)
[2017-04-13 14:56] LABS: URINE BACTERIA TRACE (NEG); URINE RBC 0 - 2 /hpf (0-2)
--- NOTE | 2017-04-13 15:23 | RAD ---
PROCEDURE: Radiographs of the Lumbar Spine. HISTORY: back pain COMPARISON: No prior. FINDINGS: BONES: Normal alignment. No listhesis. No fracture. DISC SPACES: Unremarkable. OTHER FINDINGS: None. IMPRESSION: Unremarkable radiographs of the lumbar spine.
[2017-04-13 15:40] VITALS: BP 110/71; PULSE 79; O2SAT 99
== END 2017-04-13 16:12 | disposition home or self-care (01) ==
LOC: ED 13:25
DX: N39.0 Urinary tract infection, site not specified (principal); M54.5 Low back pain
CPT/HCPCS: 72110; 81001; 87086; 96372; 99282; J1885

== ENCOUNTER 2017-04-15 09:09 | Emergency (ER) | payer OTHER ==
[2017-04-15 09:11] VITALS: BMI 25.9
--- NOTE | 2017-04-15 09:15 | ED PDOC ---
Arrival/HPI - General Time Seen by Provider: 04/15/17 09:13 Historian: Patient - History of Present Illness Narrative History of Present Illness (Text): 04/15/17 09:15 57 y/o female, pmh including UTI (on macrobid)/HIV, nkda, post menopausal, c/o coughing and chest pain x 4 days. Pt. stated that she was seen here in the ER about couple days ago for UTI, on macrobid. Pt. stated that she also has been coughing on and off x 4 days, pain with coughing and inspiration, no palpitation , no numbness or tingling, no fever or chills, no night sweat, no rash, no numbness or tingling, no other medical or psychological complaints. Past Medical History - Provider Review Nursing Documentation Reviewed: Yes - Infectious Disease Hx of Infectious Diseases: None - Tetanus Immunization Tetanus Immunization: Unknown - Cardiac Hx Cardiac Disorders: No - Pulmonary Hx Respiratory Disorders: No - Neurological Hx Neurological Disorder: No - HEENT Hx HEENT Disorder: No - Renal Hx Renal Disorder: Yes Hx Kidney Stones: Yes - Endocrine/Metabolic Hx Endocrine Disorders: No - Hematological/Oncological Hx Blood Disorders: Yes - Integumentary Hx Dermatological Disorder: No - Musculoskeletal/Rheumatological Hx Musculoskeletal Disorders: No - Gastrointestinal Hx Gastrointestinal Disorders: Yes Hx Gastroesophageal Reflux: Yes - Genitourinary/Gynecological Hx Genitourinary Disorders: No - Psychiatric Hx Psychophysiologic Disorder: Yes Hx Anxiety: Yes Hx Depression: Yes Hx Substance Use: No - Surgical History Hx Cholecystectomy: Yes Other/Comment: kidney stones removed - Anesthesia Hx Anesthesia: Yes Hx Anesthesia Reactions: No Hx Malignant Hyperthermia: No - Suicidal Assessment Feels Threatened In Home Enviroment: No Family/Social History - Physician Review Nursing Documentation Reviewed: Yes Family/Social History: Unknown Family HX Smoking Status: Never Smoked Hx Alcohol Use: No Hx Substance Use: No Hx Substance Use Treatment: No Allergies/Home Meds Allergies/Adverse Reactions: Allergies No Known Allergies Allergy (Verified 04/13/17 13:34) Home Medications: Home Meds Medication Instructions Recorded Confirmed Emtricita/rilpivir/tenofovir 1 tab PO DAILY 03/31/14 04/15/17 [Complera 200 mg-25 mg-300 mg] Review of Systems - Review of Systems Constitutional: absent: Fatigue, Fevers Eyes: absent: Vision Changes ENT: absent: Hearing Changes Respiratory: Cough. absent: SOB, Sputum, Wheezing Cardiovascular: Chest Pain. absent: Palpitations, Orthopnea, Syncope Gastrointestinal: absent: Abdominal Pain, Diarrhea, Nausea, Vomiting Musculoskeletal: absent: Arthralgias, Back Pain, Myalgias Skin: absent: Rash, Pruritis Neurological: absent: Headache, Dizziness Psychiatric: absent: Anxiety, Depression, Suicidal Ideation Physical Exam Vital Signs Reviewed: Yes Vital Signs Temp Pulse Resp BP Pulse Ox 04/15/17 09:11 98.0 F 90 18 120/72 97 Temperature: Afebrile Blood Pressure: Normal Pulse: Regular Respiratory Rate: Normal Appearance: Positive for: Well-Appearing, Non-Toxic Pain Distress: Moderate Mental Status: Positive for: Alert and Oriented X 3 - Systems Exam Head: Present: Atraumatic, Normocephalic Pupils: Present: PERRL Extroacular Muscles: Present: EOMI Conjunctiva: Present: Normal Mouth: Present: Moist Mucous Membranes Pharnyx: No: ERYTHEMA, EXUDATE, TONSILS ENLARGED, Muffled/Hoarse Voice, Soft Palate/Uvular Edema Nose (External): Present: Atraumatic. No: Abrasion, Contusion, Laceration Nose (Internal): Present: Normal Inspection, No Active Bleeding. No: Rhinorrhea Neck: Present: Normal Range of Motion, Trachea Midline. No: Lymphadenopathy Respiratory/Chest: Present: Clear to Auscultation, Good Air Exchange, Decreased Breath Sounds (bilaterally), Rhonchi (bilaterally). No: Respiratory Distress, Accessory Muscle Use, Wheezes, Rales, Retracting, Tachypneic, Tender to Palpation Cardiovascular: Present: Regular Rate and Rhythm, Normal S1, S2, Other (no pedal edema). No: Murmurs Abdomen: Present: Normal Bowel Sounds. No: Tenderness, Distention, Peritoneal Signs Back: Present: Normal Inspection Upper Extremity: Present: Normal Inspection. No: Cyanosis, Edema Lower Extremity: Present: Normal Inspection. No: Edema Neurological: Present: GCS=15, Speech Normal, Motor Func Grossly Intact, Gait Normal, Memory Normal Skin: Present: Warm, Dry, Normal Color. No: Rashes Psychiatric: Present: Alert, Oriented x 3, Normal Insight, Normal Concentration Medical Decision Making ED Course and Treatment: 04/15/17 09:42 -labs/dimer/troponin -ekg -cxr -IVF/duoneb/toradol -observe and reassess 04/15/17 10:47 -Bilateral lungs clear to auscultate with no rhonchis/wheezing/crackles. -EKG: SR @ 93 BPM, no ST elevation or depression, no acute T wave changes -Chest xray: no active disease -Labs are non-significant with no elevation or wbc, negative troponin after 24 hours of chest pain. -Negative influenza -Ddimer is negative -Pt. is asymptomatic now, no cardiopulmonary complaints, feeling much better, vitally stable, request to be discharged home, Urine culture reviewed with the patient. -Discharge home with prednisone, albuterol MDI, z-pack, promethazine dm, stay hydrated, continue naproxen at home, follow up with your own pmd and practice management consultant within 2 days, return to the ER for any new or worsening signs or symptoms. - Lab Interpretations Lab Results: 04/15/17 09:45 04/15/17 09:45 Lab Results 04/15/17 10:05: D-Dimer, Quantitative 177 04/15/17 09:45: WBC 7.7, RBC 4.58, Hgb 14.2, Hct 41.7, MCV 91.0, MCH 31.0, MCHC 34.1, RDW 12.8, Plt Count 215, MPV 9.4, Gran % 77.9 H, Lymph % (Auto) 14.4 L, [place] % (Auto) 7.0 H, Eos % (Auto) 0.6 L, Baso % (Auto) 0.1, Gran # 5.99, Lymph # 1.1 L, [place] # 0.5, Eos # 0.1, Baso # 0.01 04/15/17 09:45: Sodium 137, Potassium 4.1, Chloride 103, Carbon Dioxide 26, Anion Gap 12, BUN 8, Creatinine 0.7, Est GFR ( Amer) > 60, Est GFR (Non- Af Amer) > 60, Random Glucose 97, Calcium 8.9, Magnesium 2.0, Total Bilirubin 1.1, AST 57 H, ALT 51, Alkaline Phosphatase 83, Lactate Dehydrogenase 582, Total Creatine Kinase 150, Troponin I < 0.01, Total Protein 7.7, Albumin 4.0, Globulin 3.6, Albumin/Globulin Ratio 1.1 04/15/17 09:45: Influenza Typ A,B (EIA) Negative for flu a/b - RAD Interpretation Radiology Orders: 04/15/17 09:32 CHEST PORTABLE [RAD] Stat HISTORY: cough and chest pain x 4 days COMPARISON: 12/10/2016 FINDINGS: LUNGS: No active pulmonary disease. PLEURA: No significant pleural effusion identified, no pneumothorax apparent. CARDIOVASCULAR: Normal. OSSEOUS STRUCTURES: No significant abnormalities. VISUALIZED UPPER ABDOMEN: Normal. OTHER FINDINGS: None. IMPRESSION: No active disease. 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 No Sleep Is patient sleeping during reassessment? No Presence of Pain Presence of Pain No Pain Scale Used Pain Scale Used Numeric Location Pain Location Body Site Chest Description Description Dull Intensity of Pain at present 3 Acceptable Level of Pain 0 IVP Administration Document 04/15/17 09:52 TA (Rec: 04/15/17 09:52 OSCAR [id number]) Charges for Administration # of IVP Administrations 1 - PA / [facility]CHNICIAN / Resident Statement /DO has reviewed & agrees with the documentation as recorded. Disposition/Present on Arrival - Present on Arrival Any Indicators Present on Arrival: No History of DVT/PE: No History of Uncontrolled Diabetes: No Urinary Catheter: No History of Decub. Ulcer: No History Surgical Site Infection Following: None - Disposition Have Diagnosis and Disposition been Completed?: Yes Diagnosis: Bronchitis, Atypical chest pain Disposition: HOME/ ROUTINE Disposition Time: 10:49 Patient Plan: Discharge Condition: IMPROVED Discharge Instructions (ExitCare): Chest Pain (ED), Acute Bronchitis (ED) Print Language: MONTENEGRIN Additional Instructions: -Discharge home with prednisone, albuterol MDI, z-pack, promethazine dm, stay hydrated, continue naproxen at home, follow up with your own pmd and practice management consultant within 2 days, return to the ER for any new or worsening signs or symptoms. Prescriptions: Albuterol HFA [Ventolin HFA 90 mcg/actuation (8 g)] 2 puff IH [id number] PRN #1 in PRN Reason: Other Azithromycin [Zithromax] 250 mg PO DAILY #6 tab Prednisone 50 mg PO DAILY #5 tablet Promethazine DM [Phenergan DM Syrup] 5 ml PO QID #250 ml Referrals: Hayder Silva MD [Primary Care Provider] - Follow up with primary Krysta Nieves MD [Staff Provider] - Follow up with primary Forms: WORK NOTE
[2017-04-15 09:19] VITALS: RESP 18; O2SAT 97
[2017-04-15] MEDS ORDERED: Albuterol-Ipratrop 3 mg / 0.5 (3 ml) UD IH STA ×2 (09:32→09:37)
--- NOTE | 2017-04-15 10:01 | RAD ---
HISTORY: cough and chest pain x 4 days COMPARISON: 12/10/2016 FINDINGS: LUNGS: No active pulmonary disease. PLEURA: No significant pleural effusion identified, no pneumothorax apparent. CARDIOVASCULAR: Normal. OSSEOUS STRUCTURES: No significant abnormalities. VISUALIZED UPPER ABDOMEN: Normal. OTHER FINDINGS: None. IMPRESSION: No active disease.
[2017-04-15 10:02] LABS: BASO # 0.01 K/mm3 (0.0-2.0); BASO % 0.1 % (0.0-3.0); EOS # 0.1 (0.0-0.7); EOS % 0.6 % (1.5-5.0); GRAN # 5.99 (1.4-6.5); GRAN % 77.9 % (50.0-68.0); HEMOGLOBIN 14.2 g/dL (12.0-16.0); LYMPH # 1.1 (1.2-3.4); LYMPH % 14.4 % (22.0-35.0); MEAN CORPUSCULAR HGB CONC 34.1 g/dl (31.0-37.0); MEAN PLATELET VOLUME 9.4 fl (7.0-11.0); MONO # 0.5 (0.1-0.6); RBC 4.58 10^6/uL (3.5-6.1); RED CELL DISTRIBUTION WIDTH 12.8 % (11.5-14.5); WHITE BLOOD COUNT 7.7 10^3/ul (4.5-11.0)
[2017-04-15 10:08] LABS: ALB/GLOB RATIO 1.1 (1.1-1.8); ALT/SGPT 51 U/L (7-56); AST/SGOT 57 U/L (14-36); BLOOD UREA NITROGEN 8 mg/dL (7-21); CALCIUM 8.9 mg/dL (8.4-10.5); GFR AFRICAN-AMERICAN > 60; GFR NON-AFRICAN AMERICAN > 60
[2017-04-15 10:18] LABS: TROPONIN I < 0.01 ng/mL
[2017-04-15 11:02] VITALS: BP 128/84; PULSE 72; TEMP 98.8
--- NOTE | 2017-04-15 15:38 | CARD ---
APPROVED REPORT EKG Measurement Heart [id number] <Conclusion> Suspect arm lead reversal, interpretation assumes no reversal Unusual P axis, possible ectopic atrial rhythm Indeterminate axis Low voltage QRS Lateral infarct, age undetermined Abnormal ECG
== END 2017-04-15 11:00 | disposition home or self-care (01) ==
LOC: ED 09:09
DX: J20.9 Acute bronchitis, unspecified (principal); R07.89 Other chest pain
CPT/HCPCS: 71045; 80053; 82550; 83615; 83735; 84484; 85025; 85378; 87804; 93005; 94640; 96374; 99283; J1885

== ENCOUNTER 2018-04-30 13:21 | Emergency (ER) | payer OTHER ==
[2018-04-30 13:42] VITALS: BMI 26.2
[2018-04-30 13:44] VITALS: RESP 18
--- NOTE | 2018-04-30 14:00 | ED PDOC ---
Arrival/HPI - General Chief Complaint: Headache Time Seen by Provider: 04/30/18 13:25 Historian: Patient - History of Present Illness Narrative History of Present Illness (Text): 04/30/18 13:58 58 year old female, whose past medical history includes HIV, presents to the emergency department complaining of headache for the past 4 days associated with intermittent dizziness that began 2 days ago. Patient describes the headache as a "squeezing" across the scalp sensation and describes her dizziness as a "room spinning" sensation. Patient reports she had similar symptoms a few months ago. Patient currently has a headache and feels dizzy at the present time. She also reports she had the flu last week. Patient denies any fever, chills, vision change, double vision, chest pain, shortness of breath, nausea, vomiting, diarrhea, urinary symptoms, back pain, neck pain, headache, dizziness, numbness/tingling, or any other complaints. PMD: Dr. Jodi Silva Time/Duration: Other (4 days) Symptom Onset: Gradual Symptom Course: Unchanged Activities at Onset: Light Context: Home Past Medical History - Provider Review Nursing Documentation Reviewed: Yes - Infectious Disease Hx of Infectious Diseases: None - Tetanus Immunization Tetanus Immunization: Unknown - Cardiac Hx Cardiac Disorders: No - Pulmonary Hx Respiratory Disorders: No - Neurological Hx Neurological Disorder: No - HEENT Hx HEENT Disorder: No - Renal Hx Renal Disorder: Yes Hx Kidney Stones: Yes - Endocrine/Metabolic Hx Endocrine Disorders: No - Hematological/Oncological Hx Blood Disorders: Yes Hx AIDS: Yes - Integumentary Hx Dermatological Disorder: No - Musculoskeletal/Rheumatological Hx Musculoskeletal Disorders: No - Gastrointestinal Hx Gastrointestinal Disorders: Yes Hx Gastroesophageal Reflux: Yes - Genitourinary/Gynecological Hx Genitourinary Disorders: No - Psychiatric Hx Psychophysiologic Disorder: Yes Hx Anxiety: Yes Hx Depression: Yes Hx Substance Use: No - Surgical History Hx Cholecystectomy: Yes Other/Comment: kidney stones removed - Anesthesia Hx Anesthesia: Yes Hx Anesthesia Reactions: No Hx Malignant Hyperthermia: No - Suicidal Assessment Feels Threatened In Home Enviroment: No Family/Social History - Physician Review Nursing Documentation Reviewed: Yes Family/Social History: No Known Family HX Smoking Status: Never Smoked Hx Alcohol Use: No Hx Substance Use: No Hx Substance Use Treatment: No Allergies/Home Meds Allergies/Adverse Reactions: Allergies No Known Allergies Allergy (Verified 04/30/18 13:41) Home Medications: Home Meds Medication Instructions Recorded Confirmed Emtricita/rilpivir/tenofovir 1 tab PO DAILY 03/31/14 04/15/17 [Complera 200 mg-25 mg-300 mg] Review of Systems - Physician Review All systems were reviewed & negative as marked: Yes - Review of Systems Constitutional: absent: Fevers, Other (Chills) Eyes: absent: Vision Changes, Other (double vision) Respiratory: absent: SOB Cardiovascular: absent: Chest Pain Gastrointestinal: absent: Diarrhea, Nausea, Vomiting Genitourinary Female: absent: Dysuria, Frequency, Hematuria Musculoskeletal: absent: Back Pain, Neck Pain Neurological: Headache, Dizziness. absent: Focal Weakness, Other (numbness/tingling) Physical Exam - Physical Exam Narrative Physical Exam (Text): Gen: VS reviewed, alert, well developed, well nourished, nontoxic, mild d istress. ENT: normal pharynx. Eye: EOMI, PERRL. Neck: no JVD, supple, no adenopathy. CV: regular rate, regular rhythm, no rubs, no murmur, no gallops, S1, S2, pulses equal and strong. Pulm: no distress, clear to auscultation, no wheeze, no rhonchi, breath sounds equal, no rales. Abd: soft, nontender, no guarding, no rebound, no rigidity, normal bowel sounds. Ext: no edema. Skin: good color, no rash, no cyanosis. Psych: responds appropriately to questions, normal affect. Neuro: oriented x 3, CN2-12 intact grossly, motor intact, sensation intact. Vital Signs Reviewed: Yes Vital Signs Temp Pulse Resp BP Pulse Ox 04/30/18 13:22 97.5 F L 74 18 118/75 97 Temperature: Afebrile Blood Pressure: Normal Pulse: Regular Respiratory Rate: Normal Appearance: Positive for: Well-Appearing Medical Decision Making ED Course and Treatment: 04/30/18 13:58 Impression: 58 year old female presents complaining of headache for the past 4 days associated with intermittent dizziness for the past 2 days. Plan: -- Antivert -- CT head w/o contrast -- Reassess and disposition Prior Visits: Notes and results from previous visits were reviewed. Patient was last seen in the emergency department on Progress Notes: 04/30/18 14:52 patient was seen for dizziness/vertigo with benign physical exam and no neuro deficits. vertigo is intermittent and non-debilitating. patient feels well and ready for discharge. it was discussed to follow up with neurology for persistent symptoms or to return to the ED for any new or worsening symptoms. - RAD Interpretation Narrative RAD Interpretations (Text): PROCEDURE: CT Head w/o contrast DICTATED BY: Fer Cruz MD DATED SIGNED: 04/30/18 IMPRESSION: Normal CT of the head. No intracranial mass, hemorrhage or evidence of acute infarct. Home Advisor: Radiologist - Scribe Statement The provider has reviewed the documentation as recorded by the Scribe Esdras Miranda Provider Scribe Attestation: All medical record entries made by the Scribe were at my direction and personally dictated by me. I have reviewed the chart and agree that the record accurately reflects my personal performance of the history, physical exam, medical decision making, and the department course for this patient. I have also personally directed, reviewed, and agree with the discharge instructions and disposition. Disposition/Present on Arrival - Present on Arrival Any Indicators Present on Arrival: No History of DVT/PE: No History of Uncontrolled Diabetes: No Urinary Catheter: No History of Decub. Ulcer: No History Surgical Site Infection Following: None - Disposition Have Diagnosis and Disposition been Completed?: Yes Diagnosis: Tension headache, Vertigo Disposition: HOME/ ROUTINE Disposition Time: 15:06 Patient Plan: Discharge Condition: STABLE Discharge Instructions (ExitCare): Vertigo (a Type of Dizziness), Tension Headache (DC) Additional Instructions: return for any new or worsening symptoms. follow up with a neurologist for any persistent symptoms. Prescriptions: Meclizine [Meclizine*] 25 mg PO TID #15 tab Referrals: Hayder Silva MD [Primary Care Provider] - Follow up with primary [facility] [Outside] - Follow up with primary Zander Vides MD [Staff Provider] - Follow up with primary Forms: [employer] (Nepali)
--- NOTE | 2018-04-30 14:33 | CT ---
Date of service: 04/30/2018 PROCEDURE: CT HEAD WITHOUT CONTRAST. HISTORY: headache, vertigo COMPARISON: 06/30/2016 TECHNIQUE: Axial computed tomography images were obtained through the head/brain without intravenous contrast. Radiation dose: Total exam DLP = 730.91 mGy-cm. This CT exam was performed using one or more of the following dose reduction techniques: Automated exposure control, adjustment of the mA and/or kV according to patient size, and/or use of iterative reconstruction technique. FINDINGS: HEMORRHAGE: No intracranial hemorrhage. BRAIN: No mass effect or edema. No atrophy or chronic microvascular ischemic changes. VENTRICLES: Unremarkable. No hydrocephalus. CALVARIUM: Unremarkable. PARANASAL SINUSES: Unremarkable as visualized. No significant inflammatory changes. MASTOID AIR CELLS: Unremarkable as visualized. No inflammatory changes. OTHER FINDINGS: None. IMPRESSION: Normal CT of the Head. No intracranial mass, hemorrhage or evidence of acute infarct.
[2018-04-30 15:02] VITALS: BP 100/66; PULSE 70; TEMP 98.2; O2SAT 99
== END 2018-04-30 15:23 | disposition home or self-care (01) ==
LOC: ED 13:21
DX: G44.209 Tension-type headache, unspecified, not intractable (principal); R42 Dizziness and giddiness; Z21 Asymptomatic human immunodeficiency virus [HIV] infection status

== ENCOUNTER 2018-06-02 14:18 | Emergency (ER) | payer OTHER ==
[2018-06-02 14:18] VITALS: BMI 26.2
[2018-06-02] MEDS ORDERED: Sodium Chloride 0.9% 1,000 ML IV STA (14:55)
--- NOTE | 2018-06-02 15:11 | ED PDOC ---
Arrival/HPI - General Historian: Patient - History of Present Illness Narrative History of Present Illness (Text): 06/02/18 15:02 58 y/o female with PMH of HIV presents to the ED upper abdominal pain since this morning. It's intermittent, colic in nature, no alleviating or worsening factor. Pain is associated with nausea, multiple episodes of non bloody but bilious vomiting, watery diarrhea, generalized muscle cramps, unable to tolerate PO intake, fever and headache. Patient reports being in her normal state of health the night before. No unusual food intake, no recent sickness, no sick contacts. She denied chest pain, SOB, palpitations, urinary symptoms, leg swelling, muscle weakness, loss of sensation. 06/02/18 15:12 Time/Duration: 24 hours Symptom Onset: Gradual Symptom Course: Worsening Quality: Cramping Severity Level: 7 Context: Home <Bala Mehta - Last Filed: 06/02/18 15:18> <Ivan Guo - Last Filed: 06/02/18 16:21> - General Chief Complaint: GI Problem Time Seen by Provider: 06/02/18 14:20 Past Medical History - Infectious Disease Hx of Infectious Diseases: None - Tetanus Immunization Tetanus Immunization: Unknown - Reproductive Menopause: Yes - Cardiac Hx Cardiac Disorders: No - Pulmonary Hx Respiratory Disorders: No - Neurological Hx Neurological Disorder: No - HEENT Hx HEENT Disorder: No - Renal Hx Renal Disorder: Yes Hx Kidney Stones: Yes - Endocrine/Metabolic Hx Endocrine Disorders: No - Hematological/Oncological Hx Blood Disorders: Yes - Integumentary Hx Dermatological Disorder: No - Musculoskeletal/Rheumatological Hx Musculoskeletal Disorders: No - Gastrointestinal Hx Gastrointestinal Disorders: Yes Hx Gastroesophageal Reflux: Yes - Genitourinary/Gynecological Hx Genitourinary Disorders: No - Psychiatric Hx Psychophysiologic Disorder: Yes Hx Anxiety: Yes Hx Depression: Yes Hx Substance Use: No - Surgical History Hx Cholecystectomy: Yes Other/Comment: kidney stones removed - Anesthesia Hx Anesthesia: Yes Hx Anesthesia Reactions: No Hx Malignant Hyperthermia: No - Suicidal Assessment Feels Threatened In Home Enviroment: No <Bala Mehta - Last Filed: 06/02/18 15:18> Family/Social History - Physician Review Nursing Documentation Reviewed: Yes Family/Social History: No Known Family HX Smoking Status: Never Smoked Hx Alcohol Use: No Hx Substance Use: No Hx Substance Use Treatment: No <Bala Mehta - Last Filed: 06/02/18 15:18> Allergies/Home Meds <Bala Mehta - Last Filed: 06/02/18 15:18> <Ivan Guo - Last Filed: 06/02/18 16:21> Allergies/Adverse Reactions: Allergies No Known Allergies Allergy (Verified 06/02/18 14:34) Home Medications: Home Meds Medication Instructions Recorded Confirmed Emtricita/rilpivir/tenofovir 1 tab PO DAILY 03/31/14 06/02/18 [Complera 200 mg-25 mg-300 mg] Review of Systems - Review of Systems Constitutional: Fevers. absent: Weight Change ENT: Normal Respiratory: Normal. absent: Cough, Sputum, Wheezing Cardiovascular: absent: Chest Pain, Palpitations, Edema Gastrointestinal: Abdominal Pain, Diarrhea, Nausea, Vomiting. absent: Hematochezia, Hematemesis Genitourinary Female: Normal. absent: Dysuria, Frequency, Hematuria, Vaginal Bleeding, Vaginal Discharge Skin: Normal. absent: Rash, Skin Lesions Neurological: Headache, Dizziness. absent: Focal Weakness, Speech Changes, Disequilibrium Endocrine: Normal Hemo/Lymphatic: Normal. absent: Adenopathy, Easy Bleeding Psychiatric: Normal <Bala Mehta - Last Filed: 06/02/18 15:18> Physical Exam Vital Signs Reviewed: Yes Vital Signs Temp Pulse Resp BP Pulse Ox 06/02/18 14:35 100.0 F H 91 H 17 115/75 95 Temperature: Febrile Blood Pressure: Normal Pulse: Regular Respiratory Rate: Normal Appearance: Positive for: Well-Appearing, Non-Toxic Pain Distress: Mild Mental Status: Positive for: Alert and Oriented X 3 - Systems Exam Head: Present: Atraumatic, Normocephalic Pupils: Present: PERRL Extroacular Muscles: Present: EOMI Conjunctiva: Present: Normal Mouth: Present: Dry Pharnyx: Present: Normal. No: ERYTHEMA, EXUDATE Nose (External): Present: Atraumatic Nose (Internal): Present: Normal Inspection Neck: Present: Normal Range of Motion. No: MIDLINE TENDERNESS, Lymphadenopathy Respiratory/Chest: Present: Clear to Auscultation, Good Air Exchange. No: Respiratory Distress, Wheezes, Rhonchi Cardiovascular: Present: Regular Rate and Rhythm, Normal S1, S2. No: Murmurs, Rub, Gallop Abdomen: Present: Tenderness, Normal Bowel Sounds. No: Distention, Rebound, Guarding Upper Extremity: Present: Normal Inspection, Normal ROM, NORMAL PULSES. No: Cyanosis, Edema Lower Extremity: Present: Normal Inspection, NORMAL PULSES. No: Edema, CALF TENDERNESS Neurological: Present: GCS=15, CN II-XII Intact, Speech Normal Skin: Present: Warm, Dry. No: Rashes Psychiatric: Present: Alert, Oriented x 3, Normal Insight, Normal Concentration, Anxious <Bala Mehta - Last Filed: 06/02/18 15:18> Vital Signs Temp Pulse Resp BP Pulse Ox 06/02/18 15:42 104/64 06/02/18 15:28 99.5 F 85 18 97/57 L 99 06/02/18 14:35 100.0 F H 91 H 17 115/75 95 <Ivan Guo - Last Filed: 06/02/18 16:21> Medical Decision Making - RAD Interpretation Radiology Orders: 06/02/18 14:57 CHEST PORTABLE [RAD] Stat - Medication Orders Current Medication Orders: Sodium Chloride (Sodium Chloride 0.9%) 1,000 mls @ 999 mls/hr IV .Q1H1M STA Stop: 06/02/18 15:55 Discontinued Medications Ketorolac Tromethamine (Toradol) 30 mg IVP STAT STA Stop: 06/02/18 14:56 Ondansetron HCl (Zofran Inj) 8 mg IVP STAT STA Stop: 06/02/18 14:56 <Bala Mehta - Last Filed: 06/02/18 15:18> ED Course and Treatment: Seen and examined with resident. 58 y/o F p/w body aches, fever, headache, nausea, vomiting, diarrhea. Denies abdominal pain, neck stiffness, recent travel. On exam, no nuchal rigidity. No abdominal tenderness. CXR no consolidation. Influenza positive. Tamiflu administered and prescribed. Discharged home, f/u PMD, return to ED for worsening pain, fever, dyspnea, lethargy, vomiting, or any other problem. - Lab Interpretations Lab Results: Total Bilirubin 1.2 mg/dL (0.2-1.3) 06/02/18 15:31 AST 43 U/L (14-36) H D 06/02/18 15:31 ALT 18 U/L (7-56) 06/02/18 15:31 Alkaline Phosphatase 67 U/L (38-126) 06/02/18 15:31 Total Protein 7.6 g/dL (5.8-8.3) 06/02/18 15:31 Albumin 4.2 g/dL (3.0-4.8) 06/02/18 15:31 Globulin 3.4 gm/dL 06/02/18 15:31 Albumin/Globulin Ratio 1.2 (1.1-1.8) 06/02/18 15:31 Lipase 198 U/L (23-300) 06/02/18 15:31 Urine Color Yellow (YELLOW) 06/02/18 15:31 Urine Appearance Clear (CLEAR) 06/02/18 15:31 Urine pH 5.5 (4.7-8.0) 06/02/18 15:31 Ur Specific [place] >= 1.030 (1.005-1.035) 06/02/18 15:31 Urine Protein Negative mg/dL (<30 mg/dL) 06/02/18 15:31 Urine Glucose (UA) Negative mg/dL (NEGATIVE) 06/02/18 15:31 Urine Ketones 15 mg/dL (NEGATIVE) H 06/02/18 15:31 Urine Blood Small (NEGATIVE) H 06/02/18 15:31 Urine Nitrate Negative (NEGATIVE) 06/02/18 15:31 Urine Bilirubin Negative (NEGATIVE) 06/02/18 15:31 Urine Urobilinogen 0.2 E.U./dL (<1 E.U./dL) 06/02/18 15:31 Ur Leukocyte Esterase Negative [place]/uL (NEGATIVE) 06/02/18 15:31 Urine RBC 0 - 2 /hpf (0-2) 06/02/18 15:31 Urine WBC 0 - 2 /hpf (0-6) 06/02/18 15:31 Ur Epithelial Cells 1 - 3 /hpf (0-5) 06/02/18 15:31 - RAD Interpretation Radiology Orders: 06/02/18 14:57 CHEST PORTABLE [RAD] Stat - Medication Orders Current Medication Orders: Discontinued Medications Sodium Chloride (Sodium Chloride 0.9%) 1,000 mls @ 999 mls/hr IV .Q1H1M STA Stop: 06/02/18 15:55 Last Admin: 06/02/18 15:20 Dose: 999 mls/hr eMAR Start Stop Document 06/02/18 15:20 BB (Rec: 06/02/18 15:33 [id number] Intravenous Solution Start Date 06/02/18 Start Time 15:20 End Date 06/02/18 Ketorolac Tromethamine (Toradol) 30 mg IVP STAT STA Stop: 06/02/18 14:56 Last Admin: 06/02/18 15:31 Dose: 30 mg MAR Pain Assessment Document 06/02/18 15:31 BB (Rec: 06/02/18 15:32 [id number]) Pain Reassessment Is this a pain reassessment? No Location Pain Location Body Site Abdomen Description Description Constant Intensity of Pain at present 7 Pain Behavior Withdrawal from Touch Grasping Site Rubbing Site Restlessness Facial Grimacing IVP Administration Document 06/02/18 15:31 BB (Rec: 06/02/18 15:32 [id number]) Charges for Administration # of IVP Administrations 1 Ondansetron HCl (Zofran Inj) 8 mg IVP STAT STA Stop: 06/02/18 14:56 Last Admin: 06/02/18 15:31 Dose: 8 mg IVP Administration Document 06/02/18 15:31 BB (Rec: 06/02/18 15:31 [id number]) Charges for Administration # of IVP Administrations 1 <Ivan Guo - Last Filed: 06/02/18 16:21> Disposition/Present on Arrival - Present on Arrival Any Indicators Present on Arrival: No History of DVT/PE: No History of Uncontrolled Diabetes: No Urinary Catheter: No History of Decub. Ulcer: No History Surgical Site Infection Following: None <Bala Mehta - Last Filed: 06/02/18 15:18> - Disposition Have Diagnosis and Disposition been Completed?: Yes Disposition Time: 16:17 Patient Plan: Discharge <Ivan Guo - Last Filed: 06/02/18 16:21> - Disposition Diagnosis: Influenza Disposition: HOME/ ROUTINE Patient Problems: Current Active Problems Problem Status Onset Influenza Acute Condition: STABLE Discharge Instructions (ExitCare): Flu, Adult (DC) Prescriptions: Ondansetron ODT [Zofran ODT] 4 mg PO Q8 #12 odt Oseltamivir Phosphate [Tamiflu] 1 cap PO BID #9 capsule Referrals: Hayder Silva MD [Family Provider] - Follow up with primary Forms: [employer] ([place]), WORK NOTE
[2018-06-02 15:29] VITALS: RESP 18
[2018-06-02 15:36] LABS: EOS % 0.1 % (1.5-5.0); HEMOGLOBIN 15.6 g/dL (12.0-16.0); LYMPH # 0.3 (1.2-3.4); LYMPH % 4.1 % (22.0-35.0); MEAN CELL VOLUME 91.3 fl (80.0-105.0); MEAN CORPUSCULAR HEMOGLOBIN 30.9 pg (25.0-35.0); MEAN CORPUSCULAR HGB CONC 33.8 g/dl (31.0-37.0); MEAN PLATELET VOLUME 9.8 fl (7.0-11.0); MONO # 0.2 (0.1-0.6); MONO % 2.8 % (1.0-6.0); PH,URINE 5.5 (4.7-8.0); PLATELET COUNT 241 10^3/uL (120.0-450.0); RBC 5.05 10^6/uL (3.5-6.1); RED CELL DISTRIBUTION WIDTH 13.2 % (11.5-14.5); URINE BILIRUBIN NEGATIVE (NEGATIVE); URINE BLOOD SMALL (NEGATIVE); URINE GLUCOSE (UA) NEGATIVE (NEGATIVE); URINE LEUKOCYTE ESTERASE NEGATIVE Leu/uL (NEGATIVE); URINE PROTEIN NEGATIVE mg/dL (<30 mg/dL); URINE UROBILINOGEN 0.2 E.U./dL (<1 E.U./dL); WHITE BLOOD COUNT 7.6 10^3/uL (4.5-11.0)
[2018-06-02 15:38] LABS: URINE APPEARANCE CLEAR (CLEAR); URINE COLOR YELLOW (YELLOW)
[2018-06-02 15:42] LABS: URINE RBC 0 - 2 /hpf (0-2); URINE WBC 0 - 2 /hpf (0-6)
[2018-06-02 15:48] LABS: ALB/GLOB RATIO 1.2 (1.1-1.8); ALBUMIN 4.2 g/dL (3.0-4.8); BLOOD UREA NITROGEN 13 mg/dL (7-21); CALCIUM 8.8 mg/dL (8.4-10.5); GFR NON-AFRICAN AMERICAN > 60; LIPASE 198 U/L (23-300)
[2018-06-02 15:54] LABS: LYMPHOCYTE 8 % (22.0-35.0); MONOCYTE 1 % (1.0-6.0); NEUTROPHIL 91 % (50.0-70.0)
[2018-06-02 15:55] LABS: PLATELET ESTIMATE NORMAL (NORMAL)
[2018-06-02 16:04] LABS: ALT/SGPT 18 U/L (7-56); AST/SGOT 43 U/L (14-36)
--- NOTE | 2018-06-02 16:18 | RAD ---
Date of service: 06/02/2018 HISTORY: fever COMPARISON: 04/15/2017 FINDINGS: LUNGS: No active pulmonary disease. PLEURA: No significant pleural effusion identified, no pneumothorax apparent. CARDIOVASCULAR: No aortic atherosclerotic calcification present. Normal cardiac size. No pulmonary vascular congestion. OSSEOUS STRUCTURES: No significant abnormalities. VISUALIZED UPPER ABDOMEN: Normal. OTHER FINDINGS: None. IMPRESSION: No active disease.
[2018-06-02 17:18] VITALS: BP 95/61; PULSE 88; TEMP 97.8; O2SAT 97
== END 2018-06-02 17:20 | disposition home or self-care (01) ==
LOC: ED 14:18
DX: J11.1 Influenza due to unidentified influenza virus with other respiratory manifestations (principal)
CPT/HCPCS: 71045; 80053; 81001; 83690; 83735; 84100; 85025; 87040; 87086; 87804; 96374; 96375; 99284; J1885; J2405; J7030